=== PATIENT | male | born 2000 | race Hispanic/Latino ===

== ENCOUNTER 2020-06-05 07:51 | Emergency (ER) | payer OTHER ==
--- OUTSIDE RECORDS SUMMARY | 2020-06-05 07:54 | XMS REPORT | Continuity of Care Document ---
:2000 Author Organization [facility] t Address [address] [place] [address] Care Team Providers Name Role Phone Pob1, [facility] Attending Clinician Unavailable Problems This patient has no known problems. Allergies, Adverse Reactions, Alerts This patient has no known allergies or adverse reactions. Medications This patient has no known medications. Procedures This patient has no known procedures. Encounters Start End Encounter Admission Attending Care Care Encounter Source Date/Time Date/Time Type Type Clinicians Facility Department ID 2019-08-22 2019-08-22 Urgent Pob1, Acute [facility] [id number] 14:46:19 15:40:19 [facility] [id number] [place] [id number] [place] [phone] [address]al [address] One Results This patient has no known results.
--- NOTE | 2020-06-05 08:37 | RAD REPORT ---
EXAM DESCRIPTION: RAD - Foot Left 3 View - 06/05/2020 8:29 am CLINICAL HISTORY: great toe bleeding;Pain Pain and swelling COMPARISON: No comparisons FINDINGS: Soft tissue swelling is seen affecting great toe. No acute fracture or dislocation seen.
[2020-06-05] MEDS ORDERED: CEPHALEXIN 250 MG CAP ONE (09:44)
[2020-06-05] MEDS ORDERED: BUPIVACAINE 0.5% PF 10 ML VIAL ONE (09:44)
[2020-06-05] MEDS ORDERED: LIDOCAINE 1% MPF 5 ML VIAL ONE (09:44)
[2020-06-05] MEDS ORDERED: SMZ./TMP. 800/160 MG TABLET ONE (09:45)
[2020-06-05] MEDS ORDERED: HYDROCODONE/APAP 7.5/325 MG TAB ONE (10:15)
--- NOTE | 2020-06-05 10:47 | ER ---
Nurse's Notes [facility] Name: Anthony Glez Age: 19 yrs Sex: Male : 2000 Arrival Date: 06/05/2020 Time: 07:57 Bed 4 Private MD: Diagnosis: Tinea pedis;Local infection of the skin and subcutaneous tissue, unspecified Presentation: 06/05 08:08 Chief complaint: Athletes foot x 1 week, chronic wound noted to left great toe. hb Coronavirus screen: At this time, the client does not indicate any symptoms associated with coronavirus-19. Ebola Screen: No symptoms or risks identified at this time. Initial Sepsis Screen: Does the patient meet any 2 criteria? No. Patient's initial sepsis screen is negative. Does the patient have a suspected source of infection? No. Patient's initial sepsis screen is negative. Risk Assessment: Do you want to hurt yourself or someone else? Patient reports no desire to harm self or others. Onset of symptoms was June 05, 2020. 08:08 Method Of Arrival: Ambulatory hb 08:08 Acuity: TRINI 4 hb Historical: - Allergies: 08:14 No Known Allergies; hb - Immunization history:: Adult Immunizations up to date. - Social history:: Smoking status: Patient denies any tobacco usage or history of. Screenin:19 Abuse screen: Denies threats or abuse. Denies injuries from another. Nutritional hb screening: No deficits noted. Tuberculosis screening: No symptoms or risk factors identified. Fall Risk None identified. Assessment: 08:21 General: Appears in no apparent distress. Behavior is calm, cooperative. Pain: Pain hb currently is 10 out of 10 on a pain scale. Neuro: Level of Consciousness is awake, alert, obeys commands, Oriented to person, place, time, situation. Cardiovascular: Capillary refill < 3 seconds Patient's skin is warm and dry. Respiratory: Respiratory effort is even, unlabored, Respiratory pattern is regular, symmetrical. GI: No signs and/or symptoms were reported involving the gastrointestinal system. : No signs and/or symptoms were reported regarding the genitourinary system. EENT: No signs and/or symptoms were reported regarding the EENT system. Derm: Skin is pink, warm \T\ dry. chronic wound noted to left great toe, bilateral soles red and flaky. Musculoskeletal: No signs and/or symptoms reported regarding the musculoskeletal system. 09:30 Reassessment: Patient appears in no apparent distress at this time. Patient and/or hb family updated on plan of care and expected duration. Pain level reassessed. Patient is alert, oriented x 3, equal unlabored respirations, skin warm/dry/pink. Vital Signs: 08:08 BP 120 / 79; Pulse 90; Resp 16; Temp 98.3; Pulse Ox 100% ; Pain 10/10; hb ED Course: 07:57 Patient arrived in ED. mr 08:02 Tim Figueroa MD is Attending Physician. kdr 08:08 Sandy Reyna, RN is Primary Nurse. hb 08:14 Triage completed. hb 08:14 Arm band placed on. hb 08:19 Patient has correct armband on for positive identification. Bed in low position. Call hb light in reach. 08:29 Foot Left 3 View XRAY In Process Unspecified. EDMS 09:11 Dorene Cochran FNP-C is [facility]. kb 11:01 Abdirashid Ruiz DPM is Referral Physician. kb Administered Medications: 09:36 Drug: KeFLEX (cephalexin) 500 mg Route: PO; sv 09:37 Drug: Marcaine (bupivacaine) (0.5 %) 1 vials {Note: given to dorene-proposal manager for procedure.} sv Volume: 10 ml; Route: Infiltration; 09:37 Drug: Lidocaine (1 %) 5 mg {Note: given to dorene-proposal manager for procedure.} Route: sv Infiltration; 09:37 Drug: Bactrim (160 mg-800 mg (DS) 1 tablet Route: PO; sv 10:14 Drug: [place] (HYDROcodone-acetaminophen) (7.5 mg-325 mg) 1 tabs {Note: rass .} sv Route: PO; Outcome: 10:46 Discharge ordered by . kb 11:14 Patient left the ED. Signatures: Dispatcher [employer] EDMS Dorene Cochran FNP-C FNP-Ckb Verde, Stephanie, RN RN Tim Figueroa MD MD kdr Rivera, Mary mr Miracle Rachel, VERÓNICA SANCHES Sandy Reyna RN RN
--- NOTE | 2020-06-05 10:47 | EDPHYS ---
Physician Documentation [facility] Name: Anthony Glez Age: 19 yrs Sex: Male : 2000 Arrival Date: 06/05/2020 Time: 07:57 Bed 4 Private MD: ED Physician Tim Figueroa HPI: 06/05 08:11 This 19 yrs old Male presents to ER via Unassigned with complaints of Toe Nail kdr Problem. 08:11 The patient presents with pain, that is acute, pain and bleeding to left great toe kdr nail. The complaints affect the left foot. Context: The problem was sustained at home, resulted from an unknown cause, the patient can fully bear weight, the patient is able to ambulate, without difficulty. Onset: The symptoms/episode began/occurred suddenly, at 03:00, awoke him form sleep. Modifying factors: The symptoms are alleviated by nothing, the symptoms are aggravated by weight bearing, movement. Associated signs and symptoms: The patient has no apparent associated signs or symptoms. Severity of symptoms: At their worst the symptoms were mild, moderate, in the emergency department the symptoms have improved, mildly. The patient has not experienced similar symptoms in the past. The patient has not recently seen a physician. Historical: - Allergies: 08:14 No Known Allergies; hb - Immunization history:: Adult Immunizations up to date. - Social history:: Smoking status: Patient denies any tobacco usage or history of. ROS: 08:11 Constitutional: Negative for fever, chills, and weight loss, Eyes: Negative for injury, kdr pain, redness, and discharge, Neck: Negative for injury, pain, and swelling, Cardiovascular: Negative for chest pain, palpitations, and edema. 08:11 MS/extremity: Positive for erythema, pain, tenderness, of the Left first toenail, bleeding around edge of mail. Exam: 08:11 Constitutional: This is a well developed, well nourished patient who is awake, alert, kdr and in no acute distress. 08:11 Musculoskeletal/extremity: Extremities: grossly normal except: noted in the Left first toenail: pain, minor pain to toe. Slight bleeding - controlled around margin of nail. Vital Signs: 08:08 BP 120 / 79; Pulse 90; Resp 16; Temp 98.3; Pulse Ox 100% ; Pain 10/10; hb Procedures: 11:28 Nerve block: (digital) of left first toe Medication: Lidocaine 1% without epinephrine kb Marcaine 0.5%, Amount: 8 mls were injected, Effect: the patient has resolution of the pain, Set up for procedure. Performed by Dorene RANGEL Patient tolerated well. MDM: 09:47 Patient medically screened. kb 11:00 Data reviewed: vital signs, nurses notes. Data interpreted: Pulse oximetry: on room air kb is 100 %. Interpretation: normal. Counseling: I had a detailed discussion with the patient and/or guardian regarding: the historical points, exam findings, and any diagnostic results supporting the discharge/admit diagnosis, radiology results, the need for outpatient follow up, a dedicated truck driver, to return to the emergency department if symptoms worsen or persist or if there are any questions or concerns that arise at home. 11:31 ED course: Left Great toe nail removed. . kb 12:09 ED course: Pt reported that his nail has been loose and "wiggling" for about a week. kb Started bleeding last night. Nail was mostly detached from nail bed.. 06/05 08:10 Order name: Foot Left 3 View XRAY; Complete Time: 09:12 kdr 06/05 08:10 Order name: Misc. Order: Dilute betadine soak; Complete Time: 08:23 kdr Administered Medications: 09:36 Drug: KeFLEX (cephalexin) 500 mg Route: PO; sv 09:37 Drug: Marcaine (bupivacaine) (0.5 %) 1 vials {Note: given to lesia for procedure.} sv Volume: 10 ml; Route: Infiltration; 09:37 Drug: Lidocaine (1 %) 5 mg {Note: given to lesia for procedure.} Route: sv Infiltration; 09:37 Drug: Bactrim (160 mg-800 mg (DS) 1 tablet Route: PO; sv 10:14 Drug: [place] (HYDROcodone-acetaminophen) (7.5 mg-325 mg) 1 tabs {Note: rass .} sv Route: PO; Disposition: 15:37 Co-signature as Attending Physician, Tim Figueroa MD I agree with the assessment and kdr plan of care. Disposition: 06/05/20 10:46 Discharged to Home. Impression: Tinea pedis, Local infection of the skin and subcutaneous tissue, unspecified. - Condition is Stable. - Discharge Instructions: Athlete's Foot, [id number], Fingernail or Toenail Removal, Care After. - Prescriptions for Keflex 500 mg Oral Capsule - take 1 capsule by ORAL route every 8 hours for 10 days; 30 capsule. Bactrim DS 800- 160 mg Oral Tablet - take 1 tablet by ORAL route every 12 hours for 10 days; 20 tablet. - Medication Reconciliation Form, Thank You Letter, Antibiotic Education, Prescription Opioid Use, Work release form form. - Follow up: Private Physician; When: 2 - 3 days; Reason: Recheck today's complaints, Continuance of care, Re-evaluation by your physician. Follow up: Emergency Department; When: As needed; Reason: Worsening of condition. Follow up: Abdirashid Ruiz DPM; When: As needed; Reason: Recheck today's complaints. Signatures: Dispatcher [employer] EDMS Dorene Cochran, CLAIRE PRO-Kristine Ojeda RN RN Tim Mcdermott MD MD [facility] Miracle Rachel RN RN ss Sandy Reyna RN RN Corrections: (The following items were deleted from the chart) 11:01 10:46 06/05/2020 10:46 Discharged to Home. Impression: Tinea pedis; Local infection of kb the skin and subcutaneous tissue, unspecified. Condition is Stable. Forms are Medication Reconciliation Form, Thank You Letter, Antibiotic Education, Prescription Opioid Use. Follow up: Private Physician; When: 2 - 3 days; Reason: Recheck today's complaints, Continuance of care, Re-evaluation by your physician. Follow up: Emergency Department; When: As needed; Reason: Worsening of condition. kb 11:14 11:01 06/05/2020 10:46 Discharged to Home. Impression: Tinea pedis; Local infection of ss the skin and subcutaneous tissue, unspecified. Condition is Stable. Discharge Instructions: Athlete's Foot, [id number], Fingernail or Toenail Removal, Care After. Prescriptions for Keflex 500 mg Oral Capsule - take 1 capsule by ORAL route every 8 hours for 10 days; 30 capsule, Bactrim DS 800-160 mg Oral Tablet - take 1 tablet by ORAL route every 12 hours for 10 days; 20 tablet. and Forms are Medication Reconciliation Form, Thank You Letter, Antibiotic Education, Prescription Opioid Use. Follow up: Private Physician; When: 2 - 3 days; Reason: Recheck today's complaints, Continuance of care, Re-evaluation by your physician. Follow up: Emergency Department; When: As needed; Reason: Worsening of condition. Follow up: Abdirashid Ruiz; When: As needed; Reason: Recheck today's complaints. kb
[2020-06-05 11:19] VITALS: BP 120/79; TEMP 98.3; O2SAT 100
== END 2020-06-05 11:14 | disposition home or self-care (01) ==
LOC: ER 07:51
PROC: 0HTRXZZ Resection of Toe Nail, External Approach (ICD-10-PCS; principal; 2020-06-05)
DX: B35.3 Tinea pedis (principal); L08.9 Local infection of the skin and subcutaneous tissue, unspecified
CPT/HCPCS: 64450; 99283

== ENCOUNTER 2020-06-21 06:37 | Emergency (ER) | payer OTHER ==
--- OUTSIDE RECORDS SUMMARY | 2020-06-21 06:40 | XMS REPORT | Continuity of Care Document ---
:[address] [facility] t Address [address] [place] [address] Care Team Providers Name Role Phone Pob1, [facility] Attending Clinician Unavailable Problems This patient has no known problems. Allergies, Adverse Reactions, Alerts This patient has no known allergies or adverse reactions. Medications This patient has no known medications. Procedures This patient has no known procedures. Encounters Start End Encounter Admission Attending Care Care Encounter Source Date/Time Date/Time Type Type Clinicians Facility Department ID 2019-08-22 2019-08-22 Urgent Pob1, Acute [facility] [id number] 14:46:19 15:40:19 [facility] [id number] [place] [id number] [place] [phone] nal [address] One Results This patient has no known results.
[2020-06-21] MEDS ORDERED: ONDANSETRON 4 MG/2 ML VIAL ONE (07:51)
[2020-06-21] MEDS ORDERED: MAGNES/ALUMIN/SIMET 30ML UCUP ONE (07:51)
[2020-06-21] MEDS ORDERED: LIDOCAINE VISCOUS 2% SOLN 15 ML UDC ONE (07:51)
[2020-06-21 08:07] LABS: Absolute Lymphocytes (CBC) 1.6 K/uL (0.7-4.9); Basophils % 0.5 % (0-1.3); Hematocrit 44.3 % (39.6-49.0); Lymphocytes % 14.2 % (15.3-44.8); MPV 7.5 fL (7.6-11.3); RBC Red Blood Cell Count 5.25 M/uL (4.33-5.43)
[2020-06-21 08:40] LABS: ALT/SGPT 26 U/L (12-78); AST/SGOT 19 U/L (15-37); Albumin 3.9 g/dL (3.4-5.0); Alkaline Phosphatase 77 U/L (45-117); BUN Blood Urea Nitrogen 16 mg/dL (7-18); Bicarbonate 28 mmol/L (21-32); Bilirubin Direct < 0.1 mg/dL (0-0.2); Bilirubin Total 0.4 mg/dL (0.2-1.0); Glucose Level 104 mg/dL (74-106); Lipase 43 U/L (73-393); Potassium 3.9 mmol/L (3.5-5.1); Protein, Total 7.8 g/dL (6.4-8.2); Sodium Level 141 mmol/L (136-145)
--- NOTE | 2020-06-21 09:23 | RAD REPORT ---
EXAM DESCRIPTION: CT - Abdomen Pelvis W Contrast - 06/21/2020 8:45 am CLINICAL HISTORY: ABD PAIN COMPARISON: None TECHNIQUE: Biphasic, helical CT imaging of the abdomen and pelvis was performed following 100 ml non -ionic IV contrast. No oral contrast was given. All CT scans are performed using dose optimization technique as appropriate and may include automated exposure control or mA/KV adjustment according to patient size. FINDINGS: No suspicious findings in the lung bases. The liver, spleen, and pancreas show no suspicious findings. Gallbladder and biliary tree are also wi thout suspicious finding. Symmetric renal function is seen with no hydronephrosis or suspicious renal mass. No pyelonephritis o r acute parenchymal process. No bladder abnormalities. No adrenal abnormalities. No dilated large or small bowel loops or bowel wall thickening. No gastric wall thickening, edema or focal abnormality. Appendix is normal. No free air, free fluid or inflammatory stranding. No hernia, mass or bulky lymphadenopathy. No suspicious bony findings. IMPRESSION: Contrast enhanced CT abdomen and pelvis showing no significant or suspicious finding.
--- NOTE | 2020-06-21 09:26 | ER ---
Nurse's Notes [facility] Name: Anthony Glez Age: 19 yrs Sex: Male : 2000 Arrival Date: 06/21/2020 Time: 06:42 Bed 13 Private MD: Diagnosis: Epigastric pain;Gastritis, unspecified Presentation: 06/21 07:09 Chief complaint: Patient states: sharp pain in upper abd area, started at 0400 today, iw no n/v/d. Coronavirus screen: At this time, the client does not indicate any symptoms associated with coronavirus-19. Ebola Screen: Patient negative for fever greater than or equal to 101.5 degrees Fahrenheit, and additional compatible Ebola Virus Disease symptoms Patient denies exposure to infectious person. Patient denies travel to an Ebola-affected area in the 21 days before illness onset. No symptoms or risks identified at this time. Initial Sepsis Screen: Does the patient meet any 2 criteria? No. Patient's initial sepsis screen is negative. Does the patient have a suspected source of infection? No. Patient's initial sepsis screen is negative. Risk Assessment: Do you want to hurt yourself or someone else? Patient reports no desire to harm self or others. Onset of symptoms was June 21, 2020. 07:09 Method Of Arrival: Ambulatory iw 07:09 Acuity: TRINI 3 iw Historical: - Allergies: 07:11 No Known Allergies; iw - Home Meds: 07:11 None [Active]; iw - PMHx: 07:11 None; iw - PSHx: 07:11 None; iw - Immunization history:: Adult Immunizations up to date. - Social history:: Smoking status: Patient denies any tobacco usage or history of. - Family history:: not pertinent. - Hospitalizations: : No recent hospitalization is reported. Screenin:01 Abuse screen: Denies threats or abuse. Nutritional screening: No deficits noted. kg Tuberculosis screening: No symptoms or risk factors identified. Fall Risk None identified. No fall in past 12 months (0 pts). No secondary diagnosis (0 pts). IV access (20 points). Ambulatory Aid- None/Bed Rest/Nurse Assist (0 pts). Gait- Normal/Bed Rest/Wheelchair (0 pts) Mental Status- Oriented to own ability (0 pts). Total Muñoz Fall Scale indicates No Risk (0-24 pts). Assessment: 08:58 General: Appears in no apparent distress. Behavior is calm, cooperative, appropriate kg for age, quiet. Pain: Complains of pain in diaphragm and abdomen Pain does not radiate. Pain currently is 6 out of 10 on a pain scale. at worst was 6 out of 10 on a pain scale. level that patient reports is acceptable is 3 out of 10 on a pain scale. Quality of pain is described as burning, Pain began 4 hours ago. Is continuous. Neuro: No deficits noted. Cardiovascular: No deficits noted. Respiratory: No deficits noted. GI: No deficits noted. Bowel sounds present X 4 quads. Abd is soft and non tender X 4 quads. : No deficits noted. EENT: No deficits noted. Derm: No deficits noted. Musculoskeletal: No deficits noted. Vital Signs: 07:09 BP 125 / 77; Pulse 77; Resp 16; Temp 97.7; Pulse Ox 100% on R/A; Weight 74.84 kg; iw Height 5 ft. 10 in. (177.80 cm); Pain 9/10; 08:00 BP 104 / 68; Pulse 77; Resp 16; Pulse Ox 98% on R/A; Pain 6/10; kg 09:00 BP 107 / 65; Pulse 68; Resp 18; Pulse Ox 98% on R/A; Pain 4/10; kg 09:52 BP 109 / 74; Pulse 74; Resp 16; Pulse Ox 98% on R/A; Pain 2/10; kg 07:09 Body Mass Index 23.67 (74.84 kg, 177.80 cm) iw ED Course: 06:42 Patient arrived in ED. es 07:10 Triage completed. iw 07:11 Arm band placed on. iw 07:20 Mario Small MD is Attending Physician. rn 07:26 Zee Bledsoe is Primary Nurse. kg 07:35 Inserted saline lock: 20 gauge in right antecubital area, using aseptic technique. kg 08:45 CT Abd/Pelvis - IV Contrast Only In Process Unspecified. EDMS 09:02 Patient has correct armband on for positive identification. Bed in low position. Call kg light in reach. Side rails up X2. 09:53 No provider procedures requiring assistance completed. IV discontinued, intact, kg bleeding controlled, No redness/swelling at site. Pressure dressing applied. Administered Medications: 07:53 Drug: Zofran (Ondansetron) 4 mg Route: IVP; Site: right antecubital; kg 08:46 Follow up: Response: No adverse reaction; Marked relief of symptoms kg 07:53 Drug: GI Cocktail without - (Maalox Suspension 30 ml, Lidocaine Liquid 2 % 15 kg ml) Route: PO; 08:45 Follow up: Response: No adverse reaction; Marked relief of symptoms kg Outcome: 09:25 Discharge ordered by . tawnya 09:53 Discharged to home kg 09:53 Discharged to home ambulatory. :53 Condition: improved :53 Discharge instructions given to patient, significant other, Instructed on discharge instructions, follow up and referral plans. Demonstrated understanding of instructions, follow-up care, medications, Prescriptions given X 1. :53 Patient left the ED. kg Signatures: Dispatcher [employer] Nikia Stern Irene, RN RN iw Nieto, Roman, MD MD rn Graham, Kristen kg Corrections: (The following items were deleted from the chart) 07:14 07:09 BP 125 / 77; Pulse 77bpm; Resp 16bpm; Pulse Ox 100% RA; 74.84 kg; Height 5 ft. 10 iw in.; BMI: 23.6; Pain 9/10; iw
--- NOTE | 2020-06-21 09:26 | EDPHYS ---
Physician Documentation [facility] Name: Anthony Glez Age: 19 yrs Sex: Male : 2000 Arrival Date: 06/21/2020 Time: 06:42 Bed 13 Private MD: ED Physician Mario Small HPI: 06/21 07:53 This 19 yrs old Male presents to ER via Ambulatory with complaints of rn Abdominal Pain. 07:53 The patient presents with abdominal pain in the epigastric area. Onset: The rn symptoms/episode began/occurred this morning. The symptoms do not radiate. Associated signs and symptoms: Pertinent negatives: nausea and vomiting, blood in stools, constipation, diarrhea, dysuria, fever, shortness of breath, testicular pain, vomiting blood. The symptoms are described as intermittent, sharp. Modifying factors: The symptoms are alleviated by nothing, the symptoms are aggravated by touching the area. Severity of pain: At its worst the pain was moderate in the emergency department the pain has improved. The patient has not experienced similar symptoms in the past. Reports epigastric abd pain since 0, no fever/vomiting/diarrhea/blood in stool/dark stool. No trauma. . Historical: - Allergies: 07:11 No Known Allergies; iw - Home Meds: 07:11 None [Active]; iw - PMHx: 07:11 None; iw - PSHx: 07:11 None; iw - Immunization history:: Adult Immunizations up to date. - Social history:: Smoking status: Patient denies any tobacco usage or history of. - Family history:: not pertinent. - Hospitalizations: : No recent hospitalization is reported. ROS: 07:53 Constitutional: Negative for fever, chills, and weight loss, Eyes: Negative for injury, rn pain, redness, and discharge, Cardiovascular: Negative for chest pain, palpitations, and edema, Respiratory: Negative for shortness of breath, cough, wheezing, and pleuritic chest pain, Abdomen/GI: Negative for nausea, vomiting, diarrhea, and constipation, Back: Negative for injury and pain, : Negative for injury, bleeding, discharge, and swelling, MS/Extremity: Negative for injury and deformity, Skin: Negative for injury, rash, and discoloration, Neuro: Negative for headache, weakness, numbness, tingling, and seizure. Exam: 07:53 Constitutional: This is a well developed, well nourished patient who is awake, alert, rn and in no acute distress. Head/Face: Normocephalic, atraumatic. Cardiovascular: Regular rate and rhythm. No pulse deficits. Respiratory: No increased work of breathing, no retractions or nasal flaring. Abdomen/GI: Mild epigastric tenderness, no rebound, neg martinez Skin: Warm, dry MS/ Extremity: Pulses equal, no cyanosis. Neuro: Awake and alert, GCS 15 Vital Signs: 07:09 BP 125 / 77; Pulse 77; Resp 16; Temp 97.7; Pulse Ox 100% on R/A; Weight 74.84 kg; iw Height 5 ft. 10 in. (177.80 cm); Pain 9/10; 08:00 BP 104 / 68; Pulse 77; Resp 16; Pulse Ox 98% on R/A; Pain 6/10; kg 09:00 BP 107 / 65; Pulse 68; Resp 18; Pulse Ox 98% on R/A; Pain 4/10; kg 09:52 BP 109 / 74; Pulse 74; Resp 16; Pulse Ox 98% on R/A; Pain 2/10; kg 07:09 Body Mass Index 23.67 (74.84 kg, 177.80 cm) iw MDM: 07:20 Patient medically screened. rn 09:05 Response to treatment: the patient's symptoms have markedly improved after treatment, rn the patient's condition has returned to base line, the patient is now symptom free. 09:24 Differential diagnosis: appendicitis, cholecystitis, Cholelithiasis, gastritis, rn gastroesophageal reflux disease, non-specific abd pain, pancreatitis, Peptic Ulcer Disease. Data reviewed: vital signs, nurses notes, lab test result(s), radiologic studies, CT scan, and as a result, I will discharge patient. Counseling: I had a detailed discussion with the patient and/or guardian regarding: the historical points, exam findings, and any diagnostic results supporting the discharge/admit diagnosis, lab results, radiology results, the need for outpatient follow up, to return to the emergency department if symptoms worsen or persist or if there are any questions or concerns that arise at home. Special discussion: I discussed with the patient/guardian in detail that at this point there is no indication for admission to the hospital. It is understood, however, that if the symptoms persist or worsen the patient needs to return immediately for re-evaluation. Based on the history and exam findings, there is no indication for further emergent testing or inpatient evaluation. I discussed with the patient/guardian the need to see the account collector for further evaluation of the symptoms. I discussed with the patient/guardian the need to see the primary care provider for further evaluation of the symptoms. 06/21 07:29 Order name: Basic Metabolic Panel; Complete Time: 08:46 rn 06/21 07:29 Order name: CBC with Diff; Complete Time: 08:46 rn 06/21 07:29 Order name: Hepatic Function; Complete Time: 08:46 rn 06/21 07:29 Order name: Lipase; Complete Time: 08:46 rn 06/21 07:29 Order name: CT Abd/Pelvis - IV Contrast Only; Complete Time: 09:24 rn 06/21 07:29 Order name: IV Saline Lock; Complete Time: 07:54 rn 06/21 07:29 Order name: Labs collected and sent; Complete Time: 07:54 rn Administered Medications: 07:53 Drug: Zofran (Ondansetron) 4 mg Route: IVP; Site: right antecubital; kg 08:46 Follow up: Response: No adverse reaction; Marked relief of symptoms kg 07:53 Drug: GI Cocktail without - (Maalox Suspension 30 ml, Lidocaine Liquid 2 % 15 kg ml) Route: PO; 08:45 Follow up: Response: No adverse reaction; Marked relief of symptoms kg Disposition: 06/21/20 09:25 Discharged to Home. Impression: Epigastric pain, Gastritis, unspecified. - Condition is Stable. - Discharge Instructions: Abdominal Pain, Adult, Gastritis, Adult. - Prescriptions for Protonix 40 mg Oral Tablet - take 1 tablet by ORAL route once daily; 30 tablet. - Medication Reconciliation Form, Thank You Letter, Antibiotic Education, Prescription Opioid Use, Work release form form. - Follow up: Private Physician; When: As needed; Reason: Recheck today's complaints, Re-evaluation by your physician. - Problem is new. - Symptoms have improved. Signatures: Dispatcher [employer] Estephanie Bearden RN RN iw Nieto, Roman, MD MD rn Graham, Kristen kg Corrections: (The following items were deleted from the chart) 09:53 09:25 06/21/2020 09:25 Discharged to Home. Impression: Epigastric pain; Gastritis, kg unspecified. Condition is Stable. Forms are Medication Reconciliation Form, Thank You Letter, Antibiotic Education, Prescription Opioid Use. Follow up: Private Physician; When: As needed; Reason: Recheck today's complaints, Re-evaluation by your physician. Problem is new. Symptoms have improved. rn
[2020-06-21 10:00] VITALS: TEMP 97.7
[2020-06-21 10:02] VITALS: O2SAT 98
[2020-06-21 10:04] VITALS: BP 109/74
== END 2020-06-21 09:53 | disposition home or self-care (01) ==
LOC: ER 06:37
DX: K29.70 Gastritis, unspecified, without bleeding (principal)
CPT/HCPCS: 85025; 80048; 36415; 82565; 80076; 83690; 74177; 96374; 99284; Q9967; J2405